=== PATIENT | female | born 1955 | race Caucasian/White ===

== ENCOUNTER 2023-03-13 10:49 | Outpatient (CLI) | payer OTHER, SELFPAY ==
--- NOTE | 2023-03-13 13:00 | MR_ITS ---
WS: [id number] MRI BRAIN WITH AND WITHOUT CONTRAST HISTORY: S09.90XA - Unspecified injury of head, initial encounter COMPARISON: None available. TECHNIQUE: Multiplanar imaging performed through the brain with MultiHance 20 ml's IV. No acute infarcts are seen. Talamantes-white matter differentiation is well preserved. Remote infarct invol ving the medial RIGHT occipital cortex. There are a few scattered T2 and FLAIR signal hyperintensitie s scattered throughout the white matter. There are a few small hemosiderin foci within the RIGHT cere bellum which may be related to prior trauma. No prior large territory infarct. Ventricles and extra-axial spaces are normal. Clivus and pituitary gland are normal. Postcontrast images are negative for masses or vascular malformations. Dural venous sinuses are normal. Paranasal sinuses: Moderate-sized mucous retention cyst in the LEFT maxillary sinus. Mastoid air cells: Normal. Calvarium and scalp: Normal. MR/MR head wo/w con [id number] IMPRESSION: 1. Normal diffusion imaging. No evidence for an acute infarct. 2. 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 3. Small hemosiderin depositions in the RIGHT cerebellum may be from prior tra fracisco. 4. Mild small vessel ischemic disease.
--- NOTE | 2023-03-13 13:45 | MR_ITS ---
WS: [id number] MRA CAROTID ARTERIES HISTORY: S09.90XA - Unspecified injury of head, initial encounter COMPARISON: None available. TECHNIQUE: MRA is performed with intravenous gadolinium. MIP and source images are reviewed. Right: Normal size. No dissection or aneurysm or stenosis identified. Proximalmost common carotid art radha is not well visualized. Left: Normal size. No dissection or aneurysm or stenosis identified. Proximal most common carotid art radha is not well visualized. Subclavian Arteries: No proximal abnormality but limited. Vertebral Arteries: Normal size. No dissection identified. No occlusion. MR/MR angio neck w con* [id number] IMPRESSION: No significant carotid artery stenosis. No dissection evident.
[2023-03-13] MEDS: gadobenate dimeglumine 20 mL vial IV (14:23)
== END 2023-03-13 10:50 | disposition home or self-care (01) ==
PROVIDERS: PCP Student in an Organized Health Care Education/Training Program; Visit Provider Psychiatry & Neurology Neurology
DX: S09.90XA Unspecified injury of head, initial encounter (principal); X58.XXXA Exposure to other specified factors, initial encounter; I67.89 Other cerebrovascular disease; Z86.73 Personal history of transient ischemic attack (TIA), and cerebral infarction without residual deficits
CPT/HCPCS: 70548; 70553; A9577